=== PATIENT | male | born 1965 | race Caucasian/White ===

== ENCOUNTER → 2019-08-17 14:02 | Outpatient (CLI) | payer BC, SELFPAY ==
[2019-08-17 17:40] LABS: Chloride 99 mmol/L (98-107)
[2019-08-17 17:41] LABS: Potassium 4.4 mmoL/L (3.5-5.1); Sodium 135 mmol/L (136-145)
[2019-08-17 17:43] LABS: Alanine Aminotransferase 36 U/L (12-78); Alkaline Phosphatase 62 U/L (38-126); Anion Gap 18.4 mEq/L (5-15); Aspartate Amino Transferase 33 U/L (17-59); Bilirubin,Total 1.1 mg/dl (0.2-1.3); Blood Urea Nitrogen 9 mg/dl (9-20); Carbon Dioxide 22 mmol/L (22.0-30.0); Estimated Glomerular Filt Rate 101 ml/min (>60); GFR (African American) 122 ML/MIN (>60)
[2019-08-17 17:44] LABS: Albumin Level 4.7 g/dl (3.5-5.0); Albumin/Globulin Ratio 1.8 (1.1-1.8); Calcium 10.4 mg/dl (8.4-10.2); Chol/HDL Ratio 2.5 (1-3.5); Cholesterol 149 mg/dl (140-200); Globulin 2.6 g/dL (1.3-3.2); Glucose 97 mg/dl (74-100); HDL Cholesterol 60 mg/dl (40-60); Total Protein,Serum 7.3 g/dl (6.3-8.2); Triglycerides 174 mg/dl (30-150); VLDL Cholesterol 35 mg/dL (0-40)
[2019-08-17 17:55] LABS: Direct LDL Cholesterol 90.91 mg/dL (100-129)
[2019-08-17 18:14] LABS: Prostate Specific Ag Screen 1.5 ng/ml (0.0-4.0); Thyroid Stimulating Hormone 1.38 uIU/mL (0.465-4.68)
== END ==
PROVIDERS: Visit Provider Family Medicine
DX: I10 Essential (primary) hypertension (principal); E78.5 Hyperlipidemia, unspecified; E79.0 Hyperuricemia without signs of inflammatory arthritis and tophaceous disease; Z12.5 Encounter for screening for malignant neoplasm of prostate
CPT/HCPCS: 36415; 80053; 80061; 84443; 84550; G0103

== ENCOUNTER → 2022-03-02 10:13 | Outpatient (CLI) | payer OTHER, SELFPAY ==
--- NOTE | 2022-03-02 10:16 | CT_ITS ---
FINAL REPORT TECHNIQUE: Axial images were obtained from the lung apex to the mid abdomen by computed tomography. This study was performed with techniques to keep radiation doses as low as reasonably achievable (ALARA). Individualized dose reduction techniques using automated exposure control or adjustment of mA and/or kV according to the patient's size were employed. CLINICAL HISTORY: H/O NICOTINE DEPENDENCE FINDINGS: CHEST CT LOW DOSE CTDI vol (mGy): 2.90 DLP (mGy-cm): 120.63 There is no axillary adenopathy. There are calcified right hilar lymph nodes. The heart is normal in size. There is no pericardial or pleural effusion. There is a tiny nodule in the posterior aspect of the superior segment of the right lower lobe measuring 3 mm. Finding is well seen on image 42 series 3. There is also a 3 mm nodule in the right lower lobe seen on image 64 series 3. Limited images of the upper abdomen are unremarkable. IMPRESSION: Nodules as detailed above. Lung RADS category 2. Recommend 12 month follow-up low-dose chest CT. Reviewed, Interpreted and Dictated by John Enciso MD Transcribed by Tigist Morse Authenticated and [facility]
== END ==
PROVIDERS: PCP Family Medicine; Visit Provider Family Medicine
DX: Z87.891 Personal history of nicotine dependence (principal); Z12.2 Encounter for screening for malignant neoplasm of respiratory organs
CPT/HCPCS: 71271

== ENCOUNTER 2023-06-13 07:26 | Day surgery (SDC) | payer OTHER, SELFPAY ==
[2023-06-09 09:09] VITALS: BMI 31.1
[2023-06-13] MEDS: LACTATED RINGERS 1000ML 1,000 ML 25 ML IV (07:51)
[2023-06-13 07:56] VITALS: BP 144/76; PULSE 63; RESP 18; TEMP 36.2; O2SAT 98
--- NOTE | 2023-06-13 08:06 | EXP.ANES.CKL ---
[facility] Disclaimer: The information contained in this section may have been updated after the patient was seen, as this information can be updated by other users. Medical History Diabetes Hyperlipidemia Hypertension Surgical History History of back surgery History of back surgery Family History Other No significant family history Social History Smoking Status: Current some day smoker tobacco type: e-cigarettes alcohol intake: current substance use type: denies use current occupational status: employed Travel in the last 8 weeks: None household members: spouse housing: house lives independently: Yes marital status: [facility] Anesthesia Checklist Patient Identification Patient Identification: Arm Band Structural Data Admitted From: Home Planned Operative Procedure/s: Colonoscopy Consent for Planned Operative Procedure(s) Verified: Yes Verified Documents: Surgical Consent and History and Physical NPO Status Verified Time NPO: 00:00 Additional verifications Anesthesia Reactions: No Airway Assessment Mallampati Score:: Class II C-Spine Mobility Assessed: Yes TMJ Mobility Assessed: Yes Dentition: Good Dentition Neurological Assessment Level of Consciousness: Awake and Alert Anesthesia Plan Anesthesia Risk discussed: Yes Anesthesia Plan: Verified ASA Class: II Anesthesia Type: MAC
[2023-06-13 08:07] LABS: POC Glucose,Bedside 176 (70-110)
--- NOTE | 2023-06-13 08:29 | HMH.SCOPE ---
Procedure: Date: 06/13/23 Patient Date of :: 1965 Procedure Performed:: Colonoscopy with polypectomy Indications:: Screening Performing Provider:: Yuriy Morgan MD Referring Provider:: . Sedation:: Monitored anesthesia care Procedure:: After informed consent was obtained the patient was taken to the endoscopy suite. Sedation ensued after the patient was transferred to the left lateral decubitus position. Pulse, blood pressure, and oxygen saturation were monitored throughout the procedure. Digital rectal exam revealed no significant abnormality. The colonoscope was placed in position. The entire colon was evaluated. The colonoscope was carefully removed and the patient was transferred to recovery in stable condition. Please see findings and specimens below for detail. Findings:: Bowel preparation fair Moderate spasticity/lack of relaxation Moderate tortuosity Complex sessile lobulated cecal polyp Specimens:: Complex sessile lobulated cecal polyp (cold snare) Recommendations:: Timing of repeat colonoscopy is pending pathology will likely be between 2-3 years secondary to size/nature of polyp, spasticity/lack of relaxation, and tortuosity. Complications:: No immediate Estimated blood obtained (mL): 1 Colonoscopy Component Colonoscopy Component Was a colonoscopy performed during today's procedure?: Yes Recommended follow up colonoscopy of at least 10 years?: No If no, follow up colonoscopy recommended in ___ years?: (See above) Reason for not recommending >/= 10 yr follow-up interval?: (See above)
[2023-06-13 08:32] VITALS: O2SAT 98
[2023-06-13 09:02] VITALS: BP 91/62; PULSE 77; RESP 14; TEMP 36.2; O2SAT 92
[2023-06-13 09:12] VITALS: BP 97/63; PULSE 76; RESP 17; O2SAT 93
[2023-06-13 09:22] VITALS: BP 110/69; PULSE 70; RESP 18; O2SAT 95
[2023-06-13 09:42] VITALS: BP 119/72; PULSE 73; RESP 17; O2SAT 96
== END 2023-06-13 09:42 | disposition home or self-care (01) ==
PROVIDERS: PCP Family Medicine; Visit Provider Surgery
PROC: 0DJD8ZZ Inspection of Lower Intestinal Tract, Via Natural or Artificial Opening Endoscopic (ICD-10-PCS; CPT 45385; principal; 2023-06-13 08:30)
DX: Z12.11 Encounter for screening for malignant neoplasm of colon (principal); D12.0 Benign neoplasm of cecum; E11.9 Type 2 diabetes mellitus without complications
CPT/HCPCS: 45385; 82962; J2704

== ENCOUNTER 2024-07-11 12:43 | Outpatient (CLI) | payer OTHER, SELFPAY ==
[2024-07-11 15:36] VITALS: BMI 33.9
== END 2024-07-11 23:59 | disposition home or self-care (01) ==
LOC: DIETICIAN 12:44
PROVIDERS: PCP Family Medicine; Visit Provider Family Medicine
DX: E11.9 Type 2 diabetes mellitus without complications (principal); Z71.3 Dietary counseling and surveillance
CPT/HCPCS: 97802